=== PATIENT | female | born 1980 | race Caucasian/White ===

== ENCOUNTER 2017-11-11 15:55 | Emergency (ER) | payer OTHER ==
[2017-11-11 17:03] LABS: Urine Appearance Clear; Urine Blood Negative (Negative); Urine Color Yellow; Urine Ketones Negative (Negative); Urine Protein Negative (Negative); Urine Specific Gravity 1.008 (1.010-1.030); Urine Urobilinogen Negative (Negative)
[2017-11-11 19:01] LABS: Hematocrit 32 % (35-47); Hemoglobin 11.2 g/dl (12.0-16.0); Mean Corpuscular HGB Conc 35 g/dl (31-36); Mean Corpuscular Hemoglobin 32 pg (27-31); Mean Corpuscular Volume 92 fL (80-97); Mean Platelet Volume 8 um3 (7.4-10.4); Platelet Count 167 10^3/ul (150-450); Red Blood Count 3.45 10^6/ul (4.0-5.4); Red Cell Distribution Width 13 % (10.5-15); White Blood Count 10.3 10^3/ul (3.5-10.8)
[2017-11-11 19:19] LABS: EGFR Non-African American 109.5 (>60)
[2017-11-11 20:39] VITALS: BP 115/50
--- NOTE | 2017-11-16 10:54 | ED ---
Brittany Larson Abhishek, scribed for Fercho Moody MD on 11/11/17 at 2024 . Influenza-Like Illness - HPI Summary HPI Summary: This patient is a 37 year old F presenting to [facility] with c/o of decreased urination, nausea, back pain and pruritus. The pt states that she has dry, itchy skin. She reports that she was unable to urinate for 1.5 days but was able to go twice today. The patient rates the pain 3/10 in severity. Symptoms aggravated by nothing. Symptoms alleviated by nothing. Patient reports confusion , hoarseness of voice, ankle edema, Subjective fever diaphoresis, burning sensation of the skin, and fatigue. Patient denies sore throat. Medications reviewed and reported. - History of Current Complaint Chief Complaint: EDGeneral Time Seen by Provider: 11/11/17 18:10 Hx Obtained From: Patient Onset/Duration: Gradual Onset, Lasting Days, Still Present Associated Signs & Symptoms: Fever - subjective, Myalgia - back pain - Allergy/Home Medications Allergies/Adverse Reactions: Allergies Allergy/AdvReac Type Severity Reaction Status Date / Time Penicillins [PCN] Allergy Intermediate Hives Verified 04/13/16 10:07 PMH/Surg Hx/FS Hx/Imm Hx Endocrine/Hematology History: Denies: Hx Anticoagulant Therapy, Hx Diabetes, Hx Thyroid Disease Cardiovascular History: Denies: Hx Congestive Heart Failure, Hx Deep Vein Thrombosis, Hx Hypertension , Hx Myocardial Infarction, Hx Pacemaker/ICD Respiratory History: Reports: Hx Asthma, Other Respiratory Problems/Disorders - copd Denies: Hx Chronic Obstructive Pulmonary Disease (COPD), Hx Lung Cancer, Hx Pneumonia, Hx Pulmonary Embolism GI History: Denies: Hx Gall Bladder Disease, Hx Gastrointestinal Bleed, Hx Ulcer, Hx Urosepsis History: Denies: Hx Kidney Stones, Hx Renal Disease Musculoskeletal History: Reports: Hx Bursitis - R shoulder Neurological History: Reports: Hx Headaches Denies: Hx Dementia, Hx Migraine, Hx Seizures, Hx Transient Ischemic Attacks (TIA) Psychiatric History: Reports: Hx Anxiety, Hx Attention Deficit Hyperactivity Disorder Denies: Hx Depression, Hx Schizophrenia, Hx Bipolar Disorder - Surgical History Surgery Procedure, Year, and Place: Arthroscopy 2010 (right shoulder). Tonsillectomy/Adnoidectomy Hx Anesthesia Reactions: No Infectious Disease History: No Infectious Disease History: Reports: Hx Shingles Denies: History Other Infectious Disease, Traveled Outside the [place] in Last 30 Days - Family History Known Family History: Negative: Renal Disease, Seizure Disorder - Social History Alcohol Use: Occasionally Substance Use Type: Reports: None Smoking Status (MU): Former Smoker Type: Cigarettes Have You Smoked in the Last Year: No Review of Systems Positive: Fever - subjective, Fatigue, Skin Diaphoresis, Other Eyes: Negative ENT: Other - hoarseness of voice Negative: Sore Throat Cardiovascular: Negative Respiratory: Negative Gastrointestinal: Negative Genitourinary: Other - decreased urination Positive: Myalgia - back pain, Edema - ankles Skin: Other - pruritus Neurological: Other - confusion Psychological: Normal All Other Systems Reviewed And Are Negative: Yes Physical Exam - Summary Physical Exam Summary: Constitutional: Well-developed, Well-nourished, Alert. 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 (-) JVD, (-) Stridor, (-) Tracheal deviation Cardio: Rhythm regular, rate normal, Heart sounds normal; Intact distal pulses; The pedal pulses are 2+ and symmetric. Radial pulses are 2+ and symmetric. (-) Murmur Pulmonary/Chest wall: Effort normal. (-) Respiratory distress, (-) Wheezes, (-) Rales Abd: Soft, (-) Tenderness, (-) Distension, (-) Guarding, (-) Rebound Musculoskeletal: (-) Edema Lymph: (-) Cervical adenopathy Neuro: Alert, Oriented x3 Psych: Mood and affect Normal, Does not directly answer question about opiates in her urine that are not prescribed Triage Information Reviewed: Yes Vital Signs On Initial Exam: Initial Vitals Temp Pulse Resp BP Pulse Ox 98.7 F 78 20 119/63 98 11/11/17 16:06 11/11/17 16:06 11/11/17 16:06 11/11/17 16:06 11/11/17 16:06 Vital Signs Reviewed: Yes - Parrish Coma Scale Coma Scale Total: 15 Diagnostics - Vital Signs Vital Signs Temp Pulse Resp BP Pulse Ox 11/11/17 16:06 98.7 F 78 20 119/63 98 - Laboratory Lab Results: Lab Results 12/30/17 12/30/17 12/30/17 Range/Units 16:48 16:48 18:39 WBC (3.5-10.8) 10^3/ul RBC (4.0-5.4) 10^6/ul Hgb (12.0-16.0) g/dl Hct (35-47) % MCV (80-97) fL MCH (27-31) pg MCHC (31-36) g/dl RDW (10.5-15) % Plt Count (150-450) 10^3/ul MPV (7.4-10.4) um3 Sodium 137 (133-145) mmol/L Potassium 3.3 L (3.5-5.0) mmol/L Chloride 102 (101-111) mmol/L Carbon Dioxide 33 H (22-32) mmol/L Anion Gap 2 (2-11) mmol/L BUN 6 (6-24) mg/dL Creatinine 0.62 (0.51-0.95) mg/dL Est GFR ( Amer) 140.9 (>60) Est GFR (Non-Af Amer) 109.5 (>60) BUN/Creatinine Ratio 9.7 (8-20) Glucose 105 H (70-100) mg/dL Calcium 9.0 (8.6-10.3) mg/dL Total Bilirubin 0.70 (0.2-1.0) mg/dL AST 14 (13-39) U/L ALT 10 (7-52) U/L Alkaline Phosphatase 30 L (34-104) U/L Total Protein 6.1 L (6.4-8.9) g/dL Albumin 3.9 (3.2-5.2) g/dL Globulin 2.2 (2-4) g/dL Albumin/Globulin Ratio 1.8 (1-3) Urine Color Yellow Urine Appearance Clear Urine pH 6.0 (5-9) Ur Specific [place] 1.008 L (1.010-1.030) Urine Protein Negative (Negative) Urine Ketones Negative (Negative) Urine Blood Negative (Negative) Urine Nitrate Negative (Negative) Urine Bilirubin Negative (Negative) Urine Urobilinogen Negative (Negative) Ur Leukocyte Esterase Negative (Negative) Urine Glucose Negative (Negative) Urine Ascorbic Acid * H (Negative) Urine Opiates Screen Presumptive positive H (None Detect) Ur Barbiturates Screen None detected (None Detect) Ur Phencyclidine Scrn None detected (None Detect) Ur Amphetamines Screen None detected (None Detect) U Benzodiazepines Scrn None detected (None Detect) Urine Cocaine Screen None detected (None Detect) U Cannabinoids Screen None detected (None Detect) 11/11/17 Range/Units 18:53 WBC 10.3 (3.5-10.8) 10^3/ul RBC 3.45 L (4.0-5.4) 10^6/ul Hgb 11.2 L (12.0-16.0) g/dl Hct 32 L (35-47) % MCV 92 (80-97) fL MCH 32 H (27-31) pg MCHC 35 (31-36) g/dl RDW 13 (10.5-15) % Plt Count 167 (150-450) 10^3/ul MPV 8 (7.4-10.4) um3 Sodium (133-145) mmol/L Potassium (3.5-5.0) mmol/L Chloride (101-111) mmol/L Carbon Dioxide (22-32) mmol/L Anion Gap (2-11) mmol/L BUN (6-24) mg/dL Creatinine (0.51-0.95) mg/dL Est GFR ( Amer) (>60) Est GFR (Non-Af Amer) (>60) BUN/Creatinine Ratio (8-20) Glucose (70-100) mg/dL Calcium (8.6-10.3) mg/dL Total Bilirubin (0.2-1.0) mg/dL AST (13-39) U/L ALT (7-52) U/L Alkaline Phosphatase (34-104) U/L Total Protein (6.4-8.9) g/dL Albumin (3.2-5.2) g/dL Globulin (2-4) g/dL Albumin/Globulin Ratio (1-3) Urine Color Urine Appearance Urine pH (5-9) Ur Specific [place] (1.010-1.030) Urine Protein (Negative) Urine Ketones (Negative) Urine Blood (Negative) Urine Nitrate (Negative) Urine Bilirubin (Negative) Urine Urobilinogen (Negative) Ur Leukocyte Esterase (Negative) Urine Glucose (Negative) Urine Ascorbic Acid (Negative) Urine Opiates Screen (None Detect) Ur Barbiturates Screen (None Detect) Ur Phencyclidine Scrn (None Detect) Ur Amphetamines Screen (None Detect) U Benzodiazepines Scrn (None Detect) Urine Cocaine Screen (None Detect) U Cannabinoids Screen (None Detect) Result Diagrams: 11/11/17 18:53 11/11/17 18:39 Lab Statement: Any lab studies that have been ordered have been reviewed, and results considered in the medical decision making process. Flu Symptom Course/Dx - Course Course Of Treatment: This patient is a 37 year old F presenting to [facility] with c/ o of decreased urination, nausea, back pain and pruritus. The pt states that she has dry, itchy skin. She reports that she was unable to urinate for 1.5 days but was able to go twice today. The patient rates the pain 3/10 in severity. Patient reports confusion, hoarseness of voice, ankle edema, Subjective fever diaphoresis, burning sensation of the skin, and fatigue. Patient denies sore throat. Medications reviewed and reported. The pt will be discharged home. The Dx will be viral syndrome. The patient is agreeable with this plan. - Diagnoses Provider Diagnoses: Viral syndrome Discharge - Discharge Plan Condition: Stable Disposition: HOME Patient Education Materials: Viral Syndrome (ED) Forms: *Work Release Referrals: Suhail Caldwell MD [Primary Care Provider] - (Follow up with PCP within 2 to 3 days.) Additional Instructions: RETURN TO THE EMERGENCY DEPARTMENT FOR CHANGING OR WORSENING SYMPTOMS. The documentation as recorded by the Brittany mesa Abhishek accurately reflects the service I personally performed and the decisions made by , Fercho Moody MD.
== END 2017-11-11 20:41 | disposition home or self-care (01) ==
LOC: ED 15:55
DX: B34.9 Viral infection, unspecified (principal); Z88.0 Allergy status to penicillin; Z87.891 Personal history of nicotine dependence
CPT/HCPCS: 36415; 80053; 80307; 81003; 85027; 99282

== ENCOUNTER 2023-01-29 01:39 | Inpatient (IN) ==
[2023-01-29] MEDS ORDERED: Naloxone 0.4 mg VIAL 0.4 mg/ml 1 ml VIAL IV PUSH ONE ×2 (01:44→03:29)
[2023-01-29] MEDS ORDERED: Naloxone 4 mg VIAL 0.4 MG/ML 10 ml VIAL (4 mg) ONE (01:49)
[2023-01-29 02:07] LABS: PCO2 Arterial 43 mmHg (35-45); PO2 Arterial 60 mmHg (80-100)
[2023-01-29 02:08] LABS: ABS Basophils 0.1 10^3/ul (0-0.2); ABS Lymphocytes 2.1 10^3/ul (1.0-4.8); ABS Monocytes 0.5 10^3/ul (0-0.8); ABS Neutrophils 6.5 10^3/ul (1.5-7.7); Eosinophil % 0.4 %; Hematocrit 34 % (35-47); Hemoglobin 11.4 g/dL (12.0-16.0); Lymphocyte % 23.2 %; Mean Corpuscular HGB Conc 34 g/dL (31-36); Mean Corpuscular Hemoglobin 32 pg (27-31); Mean Corpuscular Volume 94 fL (80-97); Mean Platelet Volume 7.5 fL (7.4-10.4); Nucleated Red Blood Cells % 0.1; Platelet Count 202 10^3/uL (150-450); Red Blood Count 3.61 10^6 /uL (3.70-4.87); Red Cell Distribution Width 13 % (10-15); White Blood Count 9.2 10^3/uL (3.5-10.8)
[2023-01-29 02:21] LABS: Urine Appearance Clear; Urine Bilirubin Negative (Negative); Urine Blood Negative (Negative); Urine Color Straw; Urine Glucose Negative (Negative); Urine Ketones Negative (Negative); Urine Nitrite Negative (Negative); Urine Protein Negative (Negative); Urine Specific Gravity 1.006 (1.002-1.030); Urine Urobilinogen Negative (Negative)
[2023-01-29 03:01] LABS: Urine Benzodiazepine Screen None Detected (None Detect); Urine Cannabinoids Screen None Detected (None Detect); Urine Opiates Screen None Detected (None Detect)
[2023-01-29 03:01] LABS: ALT 10 U/L (7-52); AST 14 U/L (13-39); Acetaminophen < 15 mcg/mL; Albumin/Globulin Ratio 1.8 (1-3); Alcohol, S 34 mg/dL (<13); Alkaline Phosphatase 27 U/L (35-149); Anion Gap 8 mmol/L (2-11); Blood Urea Nitrogen 6 mg/dL (6-24); CO2 Carbon Dioxide 25 mmol/L (22-32); Chloride 107 mmol/L (101-111); Creatinine, Serum 0.79 mg/dL (0.51-0.95); Globulin 2.2 g/dL (2-4); Glucose 98 mg/dL (70-100); Potassium 3.7 mmol/L (3.5-5.0); Salicylate < 2.50 mg/dL (<30); Sodium 140 mmol/L (135-145); Total Protein 6.2 g/dL (6.4-8.9); eGFR CKD-EPI 96.9 (>60)
[2023-01-29 03:09] LABS: HCG Pregnancy < 0.60 mIU/mL
[2023-01-29 03:18] LABS: TSH Ultra Thyroid Stim Horm 1.42 mcIU/mL (0.34-5.60)
[2023-01-29] MEDS ORDERED: Iohexol 350 (CONTRAST) 500 ML MDV IV ONE (03:39)
[2023-01-29] MEDS: Naloxone 4 mg VIAL 0.4 MG/ML 10 ml VIAL (4 mg) IV PRN ×2 (03:47→04:03)
[2023-01-29] MEDS ORDERED: Etomidate 20 mg/10 ml 2 MG/ML 10 ml VIAL IV ONE (05:01)
[2023-01-29] MEDS ORDERED: Rocuronium 50 mg VIAL 10 mg/ml 5 ml VIAL (50 mg) IV ONE (05:01)
[2023-01-29] MEDS ORDERED: Propofol 10 MG/ML 20 ML BTL ONE (05:03)
[2023-01-29] MEDS ORDERED: Succinylcholine 200 mg VIAL 20 mg/ml 10 ml VIAL (200 mg) ONE (05:04)
[2023-01-29] MEDS ORDERED: Rocuronium 50 mg VIAL 10 mg/ml 5 ml VIAL (50 mg) ONE (05:04)
[2023-01-29] MEDS ORDERED: Lactated Ringers 1000 ml BAG 1,000 ML IV ONE (05:51)
[2023-01-29] MEDS ORDERED: Propofol 10 mg/ml 100 ML BTL 1,000 MG/100 ML BTL IV SCH (06:00)
[2023-01-29 06:10] LABS: PCO2 Arterial 30 mmHg (35-45); PO2 Arterial 151 mmHg (80-100)
[2023-01-29] MEDS ORDERED: Midazolam 2 mg/2 ml VIAL 1 mg/ml 2 ml VIAL (2 mg) ONE (06:28)
[2023-01-29] MEDS ORDERED: Midazolam 2 mg/2 ml VIAL 1 mg/ml 2 ml VIAL (2 mg) IV SLOW PU ONE (06:28)
[2023-01-29] MEDS ORDERED: KCL 20 MEQ/100 ML IVPREMIX 0 MEQ/0 ML BAG ONE (07:25)
[2023-01-29 08:11] LABS: ABS Lymphocytes 1.1 10^3/ul (1.0-4.8); ABS Monocytes 0.4 10^3/ul (0-0.8); ABS Neutrophils 9.1 10^3/ul (1.5-7.7); Hematocrit 37 % (35-47); Hemoglobin 12.6 g/dL (12.0-16.0); Lymphocyte % 10.6 %; Mean Corpuscular HGB Conc 34 g/dL (31-36); Mean Corpuscular Hemoglobin 32 pg (27-31); Mean Corpuscular Volume 95 fL (80-97); Mean Platelet Volume 7.9 fL (7.4-10.4); Platelet Count 195 10^3/uL (150-450); Red Blood Count 3.88 10^6 /uL (3.70-4.87); Red Cell Distribution Width 13 % (10-15); White Blood Count 10.7 10^3/uL (3.5-10.8)
[2023-01-29] MEDS: Enoxaparin 40 MG/0.4 ML SYR SUBCUT SCH (08:21)
[2023-01-29] MEDS: Potassium Chloride IV 20 MEQ in Lactated Ringers 1000 ml BAG 1,000 ML IVPB SCH ×2 (08:21→16:31)
[2023-01-29] MEDS: Pantoprazole VIAL 40 MG VIAL IV SCH (08:21)
[2023-01-29] MEDS: Chlorhexidine MOUTHWASH 0.12% 15 ML UDC SWISH SPIT SCH ×2 (08:28→11:13)
[2023-01-29 08:44] LABS: Albumin 3.9 g/dL (3.2-5.2); Calcium 9.3 mg/dL (8.6-10.3); Magnesium 1.7 mg/dL (1.9-2.7); Potassium 3.6 mmol/L (3.5-5.0); Total Bilirubin 0.8 mg/dL (0.2-1.0)
[2023-01-29 08:50] LABS: Albumin/Globulin Ratio 1.8 (1-3); Creatinine, Serum 0.71 mg/dL (0.51-0.95); Globulin 2.2 g/dL (2-4); Total Protein 6.1 g/dL (6.4-8.9); eGFR CKD-EPI 110.2 (>60)
[2023-01-29 09:00] LABS: Activated Partial Thrombo Time 26.3 seconds (26.0-38.0); INR 1.05 (0.88-1.18)
[2023-01-29] MEDS ORDERED: Magnesium Sulfate IV 1GM/100ML 1 GM/100 ML BAG IV ONE (09:58)
[2023-01-29] MEDS ORDERED: KCL 10 MEQ/50 ML IVPREMIX 10 MEQ/50 ML BAG IV ONE (10:01)
[2023-01-29 13:00] LABS: Osmolality Serum 285 mOsm/kg (275-295)
[2023-01-29 13:00] LABS: Urine Osmo 324 mOsm/kg (150-1150)
[2023-01-29] MEDS ORDERED: LORazepam 2 mg VIAL 1 ml IV PUSH ONE (21:51)
[2023-01-29] MEDS ORDERED: Lorazepam PYXIS KEY PRN (21:51)
[2023-01-30] MEDS: Potassium Chloride IV 20 MEQ in Lactated Ringers 1000 ml BAG 1,000 ML IVPB SCH ×3 (00:58→16:21)
[2023-01-30 04:45] LABS: Hematocrit 31 % (35-47); Hemoglobin 10.5 g/dL (12.0-16.0); Mean Corpuscular HGB Conc 34 g/dL (31-36); Mean Corpuscular Hemoglobin 32 pg (27-31); Mean Corpuscular Volume 94 fL (80-97); Mean Platelet Volume 7.9 fL (7.4-10.4); Platelet Count 162 10^3/uL (150-450); Red Blood Count 3.29 10^6 /uL (3.70-4.87); Red Cell Distribution Width 13 % (10-15); White Blood Count 7.8 10^3/uL (3.5-10.8)
[2023-01-30 05:25] LABS: Albumin 3.5 g/dL (3.2-5.2); Albumin/Globulin Ratio 2.5 (1-3); Calcium 8.6 mg/dL (8.6-10.3); Creatinine, Serum 0.66 mg/dL (0.51-0.95); Globulin 1.4 g/dL (2-4); Magnesium 1.8 mg/dL (1.9-2.7); Potassium 3.8 mmol/L (3.5-5.0); Total Bilirubin 0.7 mg/dL (0.2-1.0); Total Protein 4.9 g/dL (6.4-8.9); eGFR CKD-EPI 113.7 (>60)
[2023-01-30] MEDS ORDERED: Magnesium Sulfate IV 1GM/100ML 1 GM/100 ML BAG IV ONE (08:38)
[2023-01-30] MEDS ORDERED: KCL 10 MEQ/50 ML IVPREMIX 10 MEQ/50 ML BAG IV ONE (08:44)
[2023-01-30] MEDS: Enoxaparin 40 MG/0.4 ML SYR SUBCUT SCH (09:17)
[2023-01-30] MEDS: Pantoprazole VIAL 40 MG VIAL IV SCH (09:17)
[2023-01-30 11:44] LABS: Urine Appearance Cloudy; Urine Bilirubin Negative (Negative); Urine Blood 2+ (Negative); Urine Color Yellow; Urine Glucose Negative (Negative); Urine Ketones Trace (Negative); Urine Nitrite Negative (Negative); Urine Protein Negative (Negative); Urine Specific Gravity 1.011 (1.002-1.030); Urine Urobilinogen Negative (Negative)
[2023-01-30 12:24] LABS: Urine Bacteria Absent (Absent); Urine Red Blood Cell 2+(6-10/hpf) (Absent); Urine Squamous Epithelial Cell Present (Absent); Urine White Blood Cell Trace(0-5/hpf) (Absent)
[2023-01-31] MEDS ORDERED: LORazepam 2 mg VIAL 1 ml IV PUSH ONE (01:32)
[2023-01-31] MEDS ORDERED: Lorazepam PYXIS KEY PRN (01:32)
[2023-01-31] MEDS: Enoxaparin 40 MG/0.4 ML SYR SUBCUT SCH (07:17)
[2023-01-31 14:21] VITALS: BP 128/80
== END 2023-01-31 17:15 | disposition home or self-care (01) | DRG 52 ==
LOC: ED 01:39 → EDHOLD 05:14 → SUATTDRO 05:14 → ICU 06:02 → MED 01-31 03:10
PROVIDERS: ADMIT Internal Medicine; ATTEND Internal Medicine